=== PATIENT | male | born 1955 | race Caucasian/White ===

== ENCOUNTER → 2020-07-04 17:04 | Outpatient (CLI) | payer BC, SELFPAY ==
--- NOTE | 2020-07-04 17:09 | DI.MRI.S_ITS ---
PROCEDURE: MR KNEE LT WO CON INDICATIONS: INTERNAL DERANGMENT OF LEFT KNEE TECHNIQUE: Noncontrast sagittal PD fast spin echo and T2 fast spin echo with fat saturation, sagittal 3-D FLASH with fat saturation; coronal T1 spin echo and PD fast spin echo with fat saturation, and axial PD fast spin echo with fat saturation through the knee. COMPARISON: [facility] Outside Film, CR, XR KNEE 4+ VIEWS LEFT, 04/24/2020, 15:20. FINDINGS: Image quality: Excellent. Menisci: Linear oblique high T2 signal intensity traverses the posterior horn medial meniscus, demonstrating inferior articular surface extension, indicating oblique tearing. Radial tearing of the posterior horn medial meniscus at the meniscal root ligament insertion site. Lateral meniscus is intact. Cruciate ligaments: The anterior and posterior cruciate ligaments appear intact. Medial structures: The medial collateral ligament appears intact. Visualized portions of the pes anserinus tendons appear normal. No abnormal bursal fluid. Lateral structures: The lateral collateral ligament demonstrates mild T2 signal elevation at the femoral origin. The long and short heads of the biceps femoris tendon appear intact. The popliteus tendon appears normal. Iliotibial band appears normal. Anterior structures: The quadriceps and patellar tendons appear intact. There is mild T2 signal elevation within the patellar tendon at the patellar insertion site. Patellar alignment is normal. No femoral trochlear dysplasia or ventral trochlear prominence. No edema in the infrapatellar fat pad. Bones and cartilage: No bone marrow contusions or fractures. There is moderate diffuse articular cartilage loss overlying the weight-bearing aspects of the medial femoral condyle and medial tibial plateau. Moderate articular cartilage loss overlies the medial aspect of the medial patellar facet. Articular cartilage fibrillation overlies the patellar apex and lateral patellar facet. Moderate articular cartilage loss overlies the central and medial femoral trochlea. Joint space: There is a small knee joint effusion and a trace Milian's cyst. Small ganglion cyst along the popliteus. Normal appearing synovial plicae are incidentally noted. IMPRESSION: 1. Medial meniscal tearing. 2. Medial and patellofemoral compartment articular cartilage loss. 3. Mild patellar tendinitis. 4. Small knee joint effusion, trace Milian's cyst, and small ganglion cyst along the popliteus. Dictated by: Leonid Coughlin M.D. on 07/05/2020 at 8:29 Approved by: Leonid Coughlin M.D. on 07/05/2020 at 8:31
== END ==
PROVIDERS: Referring Provider Orthopaedic Surgery Adult Reconstructive Orthopaedic Surgery; Visit Provider Orthopaedic Surgery Adult Reconstructive Orthopaedic Surgery
DX: S83.242A Other tear of medial meniscus, current injury, left knee, initial encounter (principal); M76.52 Patellar tendinitis, left knee; M25.462 Effusion, left knee; M23.92 Unspecified internal derangement of left knee
CPT/HCPCS: 73721

== ENCOUNTER → 2020-11-15 14:27 | Outpatient (CLI) | payer BC, SELFPAY ==
[2020-11-15] MEDS: COVID-19 VACC #1, MRNA(MOD) 100 MCG/0.5 ML VIAL IM (14:35)
== END ==
PROVIDERS: Visit Provider Internal Medicine
DX: Z23 Encounter for immunization (principal)
CPT/HCPCS: 0011A; 91301

== ENCOUNTER → 2020-12-13 10:51 | Outpatient (CLI) | payer BC, SELFPAY ==
[2020-12-13] MEDS: COVID-19 VACC #2, MRNA(MOD) 100 MCG/0.5 ML VIAL IM (10:57)
== END ==
PROVIDERS: Visit Provider Internal Medicine
DX: Z23 Encounter for immunization (principal)
CPT/HCPCS: 0012A; 91301

== ENCOUNTER → 2021-08-16 08:01 | Outpatient (CLI) | payer MEDICARE, BC, SELFPAY ==
[2021-08-16 08:54] LABS: Alanine Aminotransferase 26 IU/L (<50); Aspartate Aminotransferase 45 IU/L (17-59); Cholesterol 139 mg/dL (140-199); Glucose 100 mg/dL (80-110); HDL Cholesterol 80 mg/dL (40-60); LDL Cholesterol Calculated 40 mg/dL (<100); Triglycerides 93 mg/dL (35-150)
[2021-08-16 08:57] LABS: High Sensitivity CRP - Cardiac 0.4 mg/L (1.0-3.0)
== END ==
PROVIDERS: PCP Internal Medicine; Referring Provider Nurse Practitioner; Visit Provider Nurse Practitioner
DX: R93.1 Abnormal findings on diagnostic imaging of heart and coronary circulation (principal); I25.10 Atherosclerotic heart disease of native coronary artery without angina pectoris; I25.84 Coronary atherosclerosis due to calcified coronary lesion; E78.2 Mixed hyperlipidemia; R73.01 Impaired fasting glucose; Z86.79 Personal history of other diseases of the circulatory system
CPT/HCPCS: 36415; 80061; 82947; 84450; 84460; 86140

== ENCOUNTER → 2021-09-13 14:52 | Outpatient (CLI) | payer MEDICARE, BC, SELFPAY ==
[2021-09-13 16:35] LABS: BUN Creatinine Ratio 10.8 (6-22); Blood Urea Nitrogen 8 mg/dL (9-20); Calcium 9.6 mg/dL (8.4-10.2); Carbon Dioxide 30 mmol/L (22-32); Chloride 94 mmol/L (98-107); Estimated Glomerular Filt Rate > 60.0 mL/min (>60); Glucose 70 mg/dL (80-110); HEMOLYSIS < 15 (0-50); Potassium 4.6 mmol/L (3.4-5.1); Sodium 131 mmol/L (137-145)
== END ==
PROVIDERS: PCP Internal Medicine; Referring Provider Internal Medicine Cardiovascular Disease; Visit Provider Internal Medicine Cardiovascular Disease
DX: I25.10 Atherosclerotic heart disease of native coronary artery without angina pectoris (principal)
CPT/HCPCS: 36415; 80048

== ENCOUNTER → 2021-10-11 15:25 | Outpatient (CLI) | payer MEDICARE, BC, SELFPAY ==
[2021-10-11 16:24] LABS: Add Manual Diff / Slide Review NO; Basophils Absolute Auto 0 /uL (0-100); Basophils Percent Auto 0.4 % (0-2); Eosinophils Absolute Auto 0 /uL (0-450); Eosinophils Percent Auto 0.6 % (2-4); Hematocrit 40.8 % (41-53); Hemoglobin 14.4 g/dL (13.5-17.5); Lymphocytes Absolute Auto 1400 /uL (1100-4500); Lymphocytes Percent Auto 25.3 % (25-40); Mean Corpuscular HGB Conc 35.4 % (30-36); Mean Corpuscular Hemoglobin 32.9 PG (26-34); Monocytes Absolute Auto 400 /uL (0-900); Monocytes Percent Auto 7.8 % (3-14); Neutrophils Absolute Auto 3700 /uL (1500-7000); Neutrophils Percent Auto 65.9 % (50-75); Platelet Count 200 X10^3/uL (150-400); Red Blood Cell Count 4.39 X10^6/uL (4.5-5.9); Red Cell Distribution Width 12.9 % (11.6-14.8); White Blood Cell Count 5.7 X10^3/uL (4.5-11.0)
[2021-10-11 16:42] LABS: BUN Creatinine Ratio 14.1 (6-22); Blood Urea Nitrogen 10 mg/dL (9-20); Calcium 9.3 mg/dL (8.4-10.2); Carbon Dioxide 31 mmol/L (22-32); Chloride 97 mmol/L (98-107); Estimated Glomerular Filt Rate > 60.0 mL/min (>60); Glucose 76 mg/dL (80-110); HEMOLYSIS < 15 (0-50); Potassium 4.1 mmol/L (3.4-5.1); Sodium 130 mmol/L (137-145)
== END ==
PROVIDERS: Referring Provider Orthopaedic Surgery; Visit Provider Orthopaedic Surgery
DX: Z01.818 Encounter for other preprocedural examination (principal); R68.89 Other general symptoms and signs
CPT/HCPCS: 36415; 80048; 85025; 93005

== ENCOUNTER → 2021-11-01 13:44 | Outpatient (CLI) | payer MEDICARE, BC, SELFPAY ==
[2021-11-01 15:19] LABS: COVID-19 CEPHEID PCR (VTM/NP) Negative (Negative)
== END ==
PROVIDERS: Visit Provider Nurse Practitioner Family
DX: Z20.822 Contact with and (suspected) exposure to COVID-19 (principal)
CPT/HCPCS: C9803; U0003; U0005

== ENCOUNTER 2021-11-11 15:15 | Emergency (ER) | payer MEDICARE, BC, SELFPAY ==
[2021-11-11 15:23] VITALS: BP 159/82; PULSE 94; RESP 17; TEMP 36.6; O2SAT 98; BMI 27.1
--- NOTE | 2021-11-11 15:44 | ED.EXTPRO ---
HPI - Extremity Problem General Chief complaint: Extremity Problem,Nontraumatic Stated complaint: post surgery RO blood clots in legs Time Seen by Provider: 11/11/21 15:39 Source: patient Mode of arrival: Ambulatory History of Present Illness HPI Narrative: 66-year-old male. One week ago underwent a left total knee replacement. Is currently just on 2 baby aspirin a day. Over the past couple days has noticed increasing swelling and pressure and discomfort in his left calf muscle and also some discoloration to his left foot. No chest pain. No shortness of breath. Has never had a blood clot in the past. Was instructed by his surgeon to come to the emergency department for evaluation of potential blood clot. Related Data Home Medications Medication Instructions Recorded Confirmed ezetimibe 10 mg tablet 10 mg PO DAILY 11/11/21 11/11/21 losartan 50 mg tablet 50 mg PO DAILY 11/11/21 11/11/21 oxycodone 5 mg tablet 5 mg PO DAILY 11/11/21 11/11/21 Allergies Allergy/AdvReac Type Severity Reaction Status Date / Time codeine AdvReac Verified 11/11/21 15:26 Review of Systems Cardiovascular Cardiovascular: Denies chest pain and Denies dyspnea Respiratory Respiratory: Denies dyspnea Musculoskeletal Musculoskeletal: Reports system reviewed and no additional complaints, except as documented and Reports as per HPI Integumentary/Breasts Skin/Breast: Reports system reviewed and no additional complaints, except as documented and Reports as per HPI Neurologic Neurologic: Reports system reviewed and no additional complaints, except as documented Hematologic/Lymphatic On Anticoagulants: No Patient History Surgical History (Updated 11/11/21 @ 16:01 by Konstantin Pemberton DO) H/O total knee replacement Social History Smoking Status: Never smoker Smoking Status: Never smoker alcohol intake frequency: other Substance Use Type: does not use Exam Initial Vital Signs Initial Vital Signs: Vital Signs Temperature 97.9 F 11/11/21 15:23 Pulse Rate 94 H 11/11/21 15:23 Respiratory Rate 17 11/11/21 15:23 Blood Pressure 159/82 H 11/11/21 15:23 Pulse Oximetry 98 11/11/21 15:23 HENMT Head: normal to inspection and normocephalic Resp Effort & Inspection: normal respiratory effort Cardio Rate: regular rate Pulses: dorsalis pedis present on the left Skin Other: Patient with bruising and ecchymosis located around the left knee in the left calf also lateral aspect of the left foot. Neuro Sensory Exam: no sensory deficits noted Extrem Other: Surgical scar left knee consistent with stated history that is covered with a surgical bandage is clean and dry. Does have swelling to his left calf and some discomfort in this area. Also has discoloration in the as well. Psych Appearance: grossly normal and well kempt Course Orders Ordered: ED Orders 11/11/21 15:45 US periph venous low extrem lt Stat Vital Signs Vital signs: Vital Signs - 8 hr 11/11/21 15:23 11/11/21 17:40 Temperature 97.9 F Pulse Rate 94 H 79 Respiratory Rate 17 18 Blood Pressure 159/82 H 147/83 H Pulse Oximetry 98 97 MDM - Extremity (Nontraumatic) Imaging Data US - DVT: Radiologist's Impression: [address] [address] Ultrasound Report Signed Patient: Bolivar Craft MR#: [id number] : 1955 Acct:[id number] Age/Sex: 66 / M Date of Service: 11/11/21 Loc: ED Accession Number: [id number] ?? Procedure: perip venous low extrem lt Ordering Provider: Konstantin Pemberton D.O. PROCEDURE:? US PERIPH VENOUS LOW EXTREM LT ? INDICATIONS:? 1 week S/P TKA eval for DVT ? TECHNIQUE:? Real-time imaging, as well as color and pulse Doppler interrogation, were performed of the lower extremity deep veins from the inguinal ligament to the popliteal fossa.? ? COMPARISON:? None. ? FINDINGS:? The common femoral, femoral and popliteal veins are normally compressible, and free of intraluminal thrombus.? Color and pulse Doppler demonstrate normal phasic intraluminal flow.? There is normal augmentation response to distal compression maneuver. ? ? IMPRESSION:? ? 1. No evidence of DVT in the left lower extremity. ? Dictated by: Nara Ramirez M.D. on 11/11/2021 at 17:00 ? ? Approved by: Nara Ramirez M.D. on 11/11/2021 at 17:00?? [facility] Narrative Medical decision making narrative: Leg exam today he is consistent with where would expect him to be at this point during his recovery after his left total knee replacement. He is neurovascularly intact. There is no signs of any infection. Clean dressing and placed over surgical incision which I did not feel the need to remove today. No evidence of DVT noted on the ultrasound. Patient was instructed he should continue to follow all of the postoperative instructions given to him by Orthopedic surgery. He has a follow-up later this week with Orthopedics already scheduled. He was given return precautions. He expressed understanding and agreement. Discharge Plan Departure Patient Disposition: Home Clinical Impression: Leg swelling Activity Restrictions/Additional Instructions: The ultrasound today did not have any indication of a blood clot in your leg. I do recommend that you follow-up all of the instructions given to by the orthopedic surgeon and keep all of your scheduled medical appointments. Return to the emergency department for any new or worsening symptoms. Prescriptions: No Action losartan 50 mg tablet 50 mg PO DAILY 0RF Label Comments: TAKE 1 TABLET BY MOUTH DAILY oxycodone 5 mg tablet 5 mg PO DAILY 0RF Label Comments: take 1-2 tablets by mouth every 6 hours if needed for severe pain ezetimibe 10 mg tablet 10 mg PO DAILY 0RF Label Comments: TAKE 1 TABLET BY MOUTH DAILY
--- NOTE | 2021-11-11 15:45 | DI.US.S_ITS ---
PROCEDURE: US PERIPH VENOUS LOW EXTREM LT INDICATIONS: 1 week S/P TKA eval for DVT TECHNIQUE: Real-time imaging, as well as color and pulse Doppler interrogation, were performed of the lower extremity deep veins from the inguinal ligament to the popliteal fossa. COMPARISON: None. FINDINGS: The common femoral, femoral and popliteal veins are normally compressible, and free of intraluminal thrombus. Color and pulse Doppler demonstrate normal phasic intraluminal flow. There is normal augmentation response to distal compression maneuver. IMPRESSION: 1. No evidence of DVT in the left lower extremity. Dictated by: Nara Ramirez M.D. on 11/11/2021 at 17:00 Approved by: Nara Ramirez M.D. on 11/11/2021 at 17:00
[2021-11-11 17:40] VITALS: BP 147/83; PULSE 79; RESP 18; O2SAT 97
== END 2021-11-11 17:44 | disposition home or self-care (01) ==
PROVIDERS: Emergency Provider Emergency Medicine; PCP Orthopaedic Surgery
DX: M79.89 Other specified soft tissue disorders (principal); M79.662 Pain in left lower leg; Z98.890 Other specified postprocedural states
CPT/HCPCS: 93971; 99281; 99283

== ENCOUNTER → 2022-04-15 07:38 | Outpatient (CLI) | payer MEDICARE, BC, SELFPAY ==
[2022-04-15 08:43] LABS: Hemoglobin A1C% w Est Avg Glu 4.7 % (4.0-6.0)
[2022-04-15 10:35] LABS: Alanine Aminotransferase 24 IU/L (<50); Aspartate Aminotransferase 42 IU/L (17-59); Cholesterol 146 mg/dL (140-199); Glucose 94 mg/dL (80-110); HDL Cholesterol 76 mg/dL (40-60); LDL Cholesterol Calculated 51 mg/dL (<100); Triglycerides 93 mg/dL (35-150)
[2022-04-15 10:51] LABS: Prostate Specific Antigen Scrn 0.637 ng/mL (0.1-4.0)
== END ==
PROVIDERS: PCP Internal Medicine; Referring Provider Nurse Practitioner; Visit Provider Nurse Practitioner
DX: Z12.5 Encounter for screening for malignant neoplasm of prostate (principal); R73.01 Impaired fasting glucose; E78.2 Mixed hyperlipidemia; I25.10 Atherosclerotic heart disease of native coronary artery without angina pectoris; I25.84 Coronary atherosclerosis due to calcified coronary lesion; Z82.49 Family history of ischemic heart disease and other diseases of the circulatory system
CPT/HCPCS: 36415; 80061; 82947; 83036; 84450; 84460; G0103

== ENCOUNTER → 2022-10-21 15:00 | Outpatient (CLI) | payer MEDICARE, BC, SELFPAY ==
[2022-10-21 16:47] LABS: Influenza A - CEPHEID Flu A NEGATIVE (NEGATIVE); Influenza B - CEPHEID Flu B NEGATIVE (NEGATIVE); Respiratory Syncytial Virus Negative (Negative)
[2022-10-21 16:59] LABS: COVID-19 CEPHEID 4-PLEX PCR Negative (Negative)
== END ==
PROVIDERS: PCP Internal Medicine; Visit Provider Nurse Practitioner Family
DX: R05.1 Acute cough (principal); R09.89 Other specified symptoms and signs involving the circulatory and respiratory systems
CPT/HCPCS: 0241U

== ENCOUNTER → 2022-12-17 06:44 | Outpatient (CLI) | payer MEDICARE, BC, SELFPAY ==
[2022-12-17 08:29] LABS: Alanine Aminotransferase 41 IU/L (<50); Albumin 4.3 g/dL (3.5-5.0); Albumin Globulin Ratio 1.7 (1.0-2.8); Alkaline Phosphatase 61 U/L (38-126); Aspartate Aminotransferase 52 IU/L (17-59); Bilirubin Total 0.8 mg/dL (0.2-1.3); Blood Urea Nitrogen 7 mg/dL (9-20); Calcium 9.2 mg/dL (8.4-10.2); Carbon Dioxide 29 mmol/L (22-32); Chloride 98 mmol/L (98-107); Cholesterol 139 mg/dL (140-199); Estimated Glomerular Filt Rate > 60 mL/min (>60); Globulin 2.5 g/dL (1.7-4.1); Glucose 86 mg/dL (80-110); HDL Cholesterol 75 mg/dL (40-60); HEMOLYSIS < 15 (0-50); LDL Cholesterol Calculated 31 mg/dL (<100); Potassium 4.5 mmol/L (3.4-5.1); Sodium 134 mmol/L (137-145); Total Protein 6.8 g/dL (6.3-8.2); Triglycerides 163 mg/dL (35-150)
== END ==
PROVIDERS: PCP Internal Medicine; Referring Provider Nurse Practitioner; Visit Provider Nurse Practitioner
DX: E78.2 Mixed hyperlipidemia (principal); I10 Essential (primary) hypertension; I25.10 Atherosclerotic heart disease of native coronary artery without angina pectoris
CPT/HCPCS: 36415; 80053; 80061

== ENCOUNTER → 2023-06-24 07:04 | Outpatient (CLI) | payer MEDICARE, BC, SELFPAY ==
[2023-06-24 08:43] LABS: Alanine Aminotransferase 46 IU/L (<50); Cholesterol 148 mg/dL (140-199); Glucose 89 mg/dL (80-110); HDL Cholesterol 79 mg/dL (40-60); LDL Cholesterol Calculated 43 mg/dL (<100); Triglycerides 129 mg/dL (35-150)
== END ==
PROVIDERS: PCP Internal Medicine; Referring Provider Nurse Practitioner; Visit Provider Nurse Practitioner
DX: E78.2 Mixed hyperlipidemia (principal); R73.01 Impaired fasting glucose
CPT/HCPCS: 36415; 80061; 82947; 83036; 84460

== ENCOUNTER 2023-07-21 12:06 | Emergency (ER) | payer MEDICARE, BC, SELFPAY ==
[2023-07-21] VITALS (14 sets, daily range): BP systolic 138–171; BP diastolic 82–87; PULSE 67–81; RESP 12–21; TEMP 36.7–36.9; O2SAT 98–100; BMI 27.1
--- NOTE | 2023-07-21 12:18 | DI.RAD.S_ITS ---
PROCEDURE: XR CHEST 1V INDICATIONS: chest pain TECHNIQUE: One view of the chest was acquired. COMPARISON: None. FINDINGS: Surgical changes and devices: None. Lungs and pleura: Lungs are clear. No pleural effusions or pneumothorax. Mediastinum: Mediastinal contours appear normal. Heart size is normal. Bones and chest wall: No suspicious bony lesions. Overlying soft tissues appear unremarkable. IMPRESSION: No acute cardiopulmonary abnormality is seen. Dictated by: Carla Kaba M.D. on 07/21/2023 at 12:55 Approved by: Carla Kaba M.D. on 07/21/2023 at 12:55
[2023-07-21] MEDS: ASPIRIN 81 MG CHEW TAB 324 MG PO (12:28)
--- NOTE | 2023-07-21 12:36 | PC.NURSE ---
Pt mainly complains of dizziness associated with change in position. Pt states he had a minor episode of chest pain prior to arriving but is unsure if was pain or not. Pt does not provide much more information when asked further questions about chest pain. Cardiac order set placed and pt on monitor.
[2023-07-21 12:37] LABS: Add Manual Diff / Slide Review NO; Basophils Absolute Auto 0 /uL (0-100); Basophils Percent Auto 0.3 % (0-2); Eosinophils Absolute Auto 0 /uL (0-450); Eosinophils Percent Auto 0.6 % (2-4); Hematocrit 40.8 % (41-53); Hemoglobin 14.6 g/dL (13.5-17.5); Lymphocytes Absolute Auto 900 /uL (1100-4500); Lymphocytes Percent Auto 16.9 % (25-40); Mean Corpuscular HGB Conc 35.9 % (30-36); Mean Corpuscular Hemoglobin 33.8 PG (26-34); Mean Corpuscular Volume 94.1 fL (80-100); Monocytes Absolute Auto 400 /uL (0-900); Monocytes Percent Auto 7.7 % (3-14); Neutrophils Absolute Auto 3900 /uL (1500-7000); Neutrophils Percent Auto 74.5 % (50-75); Platelet Count 192 X10^3/uL (150-400); Red Blood Cell Count 4.33 X10^6/uL (4.5-5.9); White Blood Cell Count 5.2 X10^3/uL (4.5-11.0)
[2023-07-21 12:43] LABS: Prothrombin Time 11.4 SECONDS (9.4-12.5)
[2023-07-21 12:46] LABS: PTT Partial Thromboplastin Tim 29 SECONDS (25.1-36.5)
[2023-07-21 12:51] LABS: Alanine Aminotransferase 43 IU/L (<50); Albumin 4.5 g/dL (3.5-5.0); Albumin Globulin Ratio 1.5 (1.0-2.8); Alkaline Phosphatase 57 U/L (38-126); Aspartate Aminotransferase 57 IU/L (17-59); BUN Creatinine Ratio 13.6 (6-22); Bilirubin Total 0.9 mg/dL (0.2-1.3); Blood Urea Nitrogen 9 mg/dL (9-20); Calcium 9.9 mg/dL (8.4-10.2); Carbon Dioxide 28 mmol/L (22-32); Chloride 93 mmol/L (98-107); Creatine Kinase 41 U/L (55-170); Estimated Glomerular Filt Rate > 60 mL/min (>60); Glucose 112 mg/dL (80-110); HEMOLYSIS < 15 (0-50); Lipase 144 U/L (23-300); Magnesium 2.2 mg/dL (1.6-2.3); Potassium 4.3 mmol/L (3.4-5.1); Sodium 128 mmol/L (137-145); Total Protein 7.5 g/dL (6.3-8.2)
[2023-07-21 13:02] LABS: Troponin I < 0.012 ng/mL (0.01-0.034)
--- NOTE | 2023-07-21 13:30 | ED_ITS ---
HPI - Chest Pain General Chief Complaint: Chest Pain Stated Complaint: dizziness when sit up or lay down/hx heart disease Time Seen by Provider: 07/21/23 13:14 Source: patient Mode of arrival: Ambulatory Limitations: no limitations Limitations: no limitations History of Present Illness HPI narrative: 68-year-old male with history of hypertension, dyslipidemia on aspirin 81 mg daily with complaint of dizziness. He states he was sleeping last night rolled over and felt dizzy. He is felt like he was going to pass out and felt lightheaded more like the room was going to white out. States he was up and down several times has had similar symptoms seems to be worse when he sits forward or lays back. Patient states it does not feel like the room or his head is spinning. He denies headache. Denies vision changes. No syncopal episodes. States no similar symptoms in the past seems to be worse with movement but he states can be worse when lying back or sitting up. Is not worse when he moves his head quickly. Denies any chest pain or pressure, no shortness of breath. Denies any nausea or vomiting. No diarrhea or constipation, no urinary symptoms. No numbness, tingling or weakness. No difficulty with movement. He does not feel off balance otherwise. Patient states he is on medication for blood pressure, cholesterol and an aspirin. No other thinners. Had any surgery 2 years ago another prior surgeries and no prior cardiac interventions. No known drug allergies. No tobacco, drinks 2-3 alcoholic drinks daily, no recreational drugs. Primary care is Dr. Sneed. Related Data Home Medications Medication Instructions Recorded Confirmed ezetimibe 10 mg tablet 10 mg PO DAILY 11/11/21 06/16/23 losartan 50 mg tablet 50 mg PO DAILY 11/11/21 06/16/23 acetaminophen 500 mg tablet (Pain 500 - 1,000 mg PO Q6H 02/21/22 06/16/23 Relief (acetaminophen)) evolocumab 140 mg/mL subcutaneous 140 mg SUBCUT Q2W 02/21/22 06/16/23 pen injector (Lisa Garcia) Previous Rx's Medication Instructions Recorded azelastine 137 mcg (0.1 %) nasal 1 spray intranasal BID #30 mL 01/16/23 spray aerosol oxycodone-acetaminophen 5 mg-325 See Rx Instructions PO Q4-6H PRN 06/16/23 mg tablet pain #45 tabs meclizine 25 mg tablet 25 mg PO QID PRN dizziness #20 tabs 07/21/23 Allergies Allergy/AdvReac Type Severity Reaction Status Date / Time [id number] Reductase AdvReac Severe Muscle Pain Verified 06/16/23 09:56 Inhibitor codeine AdvReac Verified 06/16/23 09:56 Review of Systems Review of Systems ROS Unobtainable: All systems reviewed & are unremarkable except as noted in HPI and below Patient History Medical History Opioid dependence Hearing loss Acne Shoulder pain Carpal tunnel syndrome Mumps Measles Chronic neck pain Chronic gout Coronary artery disease Mixed hyperlipidemia Essential hypertension Surgical History Anesthesia History of elbow surgery S/P appendectomy H/O total knee replacement (~10/2021) Family History Father History of heart disease Alzheimer's disease Brother History of heart disease Brother History of heart disease Social History Smoking Status: Former smoker Smoking Status: Former smoker alcohol intake frequency: other Substance Use Type: does not use Exam Narrative Exam Narrative: GEN: well nourished, well appearing male, alert and oriented x 3, patient appears to be in mild distress. HEENT: Atraumatic, pupils are equal round reactive to light, extraocular movements are intact, no nystagmus, nares are clear, TMs are clear with no fluid, there is no conjunctival pallor. Throat is clear without any exudates, erythema, tonsillar enlargement or uvular deviation, no facial droop. HEART: Regular rate and rhythm without murmur, clicks, rubs. No carotid bruits, pulses are equal in upper and lower extremities LUNGS:Lungs clear to auscultation, no wheezes, rales, crackles, chest moves symmetrically ABD:bowel sounds normal, soft, non-tender, no guarding, rebound, rigidity, no masses noted, no hepatosplenomegaly :No CVA tenderness MSCL: Non-tender, no muscle atrophy, muscles strength 5/5 upper and lower extremities, full range of motion, normal gait patient ambulated to bathroom without issue. NEURO:CN 2-12 intact, sensation normal, finger nose finger test normal, heel saenz test normal SKIN: No rash, erythema or other skin changes Initial Vital Signs Initial Vital Signs: Vital Signs Temperature 98.4 F 07/21/23 12:08 Pulse Rate 81 07/21/23 12:08 Respiratory Rate 18 07/21/23 12:08 Blood Pressure 147/86 H 07/21/23 12:08 Pulse Oximetry 98 07/21/23 12:08 Oxygen Delivery Method Room Air 07/21/23 12:08 Course Orders Ordered: Discontinued Medications Aspirin (Aspirin 81 Mg Chew Tab) 324 mg PO NOW ONE Stop: 07/21/23 12:19 Last Admin: 07/21/23 12:28 Dose: 243 mg Documented By: TRACE Sodium Chloride (Normal Saline 0.9%) 1,000 mls @ 1,000 mls/hr IV BOLUS ONE Stop: 07/21/23 15:10 Last Infusion: 07/21/23 15:38 Dose: Infused Documented By: Admin: 07/21/23 14:16 Dose: 1,000 mls/hr Documented By: CHANDRAKANT Meclizine HCl (Meclizine Hcl 12.5 Mg Tablet) 25 mg PO NOW ONE Stop: 07/21/23 13:53 Last Admin: 07/21/23 14:15 Dose: 25 mg Documented By: CHANDRAKANT Vital Signs Vital signs: Vital Signs - 8 hr 07/21/23 12:08 07/21/23 12:23 07/21/23 12:30 Temperature 98.4 F Pulse Rate 81 72 77 Pulse Rate [Orthostatic Lying] Pulse Rate [Orthostatic Sitting] Pulse Rate [Orthostatic Standing] Respiratory Rate 18 16 21 Blood Pressure 147/86 H Blood Pressure [Orthostatic Lying] Blood Pressure [Orthostatic Sitting] Blood Pressure [Orthostatic Standing] Pulse Oximetry 98 100 100 Oxygen Delivery Method Room Air 07/21/23 12:32 07/21/23 12:32 07/21/23 13:00 Temperature Pulse Rate 72 73 Pulse Rate [Orthostatic Lying] Pulse Rate [Orthostatic Sitting] Pulse Rate [Orthostatic Standing] Respiratory Rate 17 16 Blood Pressure 148/84 H Blood Pressure [Orthostatic Lying] Blood Pressure [Orthostatic Sitting] Blood Pressure [Orthostatic Standing] Pulse Oximetry 100 99 Oxygen Delivery Method 07/21/23 13:00 07/21/23 13:30 07/21/23 13:30 Temperature Pulse Rate 75 Pulse Rate [Orthostatic Lying] Pulse Rate [Orthostatic Sitting] Pulse Rate [Orthostatic Standing] Respiratory Rate 16 Blood Pressure 138/83 150/86 H Blood Pressure [Orthostatic Lying] Blood Pressure [Orthostatic Sitting] Blood Pressure [Orthostatic Standing] Pulse Oximetry 99 Oxygen Delivery Method 07/21/23 14:03 07/21/23 14:03 07/21/23 14:04 Temperature Pulse Rate 81 75 Pulse Rate [Orthostatic Lying] Pulse Rate [Orthostatic Sitting] Pulse Rate [Orthostatic Standing] Respiratory Rate Blood Pressure 154/83 H Blood Pressure [Orthostatic Lying] Blood Pressure [Orthostatic Sitting] Blood Pressure [Orthostatic Standing] Pulse Oximetry 100 100 Oxygen Delivery Method 07/21/23 14:04 07/21/23 14:05 07/21/23 14:05 Temperature Pulse Rate 77 Pulse Rate [Orthostatic Lying] Pulse Rate [Orthostatic Sitting] Pulse Rate [Orthostatic Standing] Respiratory Rate Blood Pressure 159/86 H 155/87 H Blood Pressure [Orthostatic Lying] Blood Pressure [Orthostatic Sitting] Blood Pressure [Orthostatic Standing] Pulse Oximetry 100 Oxygen Delivery Method 07/21/23 14:09 07/21/23 14:09 07/21/23 14:11 Temperature Pulse Rate 71 Pulse Rate [Orthostatic Lying] 70 Pulse Rate [Orthostatic Sitting] 76 Pulse Rate [Orthostatic Standing] 76 Respiratory Rate Blood Pressure 146/82 H Blood Pressure [Orthostatic Lying] 154/83 H Blood Pressure [Orthostatic Sitting] 159/86 H Blood Pressure [Orthostatic Standing] 155/87 H Pulse Oximetry 100 Oxygen Delivery Method 07/21/23 14:30 07/21/23 14:30 07/21/23 15:00 Temperature Pulse Rate 67 75 Pulse Rate [Orthostatic Lying] Pulse Rate [Orthostatic Sitting] Pulse Rate [Orthostatic Standing] Respiratory Rate 17 12 Blood Pressure 171/86 H Blood Pressure [Orthostatic Lying] Blood Pressure [Orthostatic Sitting] Blood Pressure [Orthostatic Standing] Pulse Oximetry 100 100 Oxygen Delivery Method Room Air 07/21/23 15:00 Temperature Pulse Rate Pulse Rate [Orthostatic Lying] Pulse Rate [Orthostatic Sitting] Pulse Rate [Orthostatic Standing] Respiratory Rate Blood Pressure 149/87 H Blood Pressure [Orthostatic Lying] Blood Pressure [Orthostatic Sitting] Blood Pressure [Orthostatic Standing] Pulse Oximetry Oxygen Delivery Method MDM - Chest Pain Lab Data 07/21/23 12:25 07/21/23 12:25 Labs: Lab Results 07/21/23 Range/Units 12:25 WBC 5.2 (4.5-11.0) X10^3/uL RBC 4.33 L (4.5-5.9) X10^6/uL Hgb 14.6 (13.5-17.5) g/dL Hct 40.8 L (41-53) % MCV 94.1 (80-100) fL MCH 33.8 (26-34) PG MCHC 35.9 (30-36) % RDW 13.0 (11.6-14.8) % Plt Count 192 (150-400) X10^3/uL Neut % (Auto) 74.5 (50-75) % Lymph % (Auto) 16.9 L (25-40) % [place] % (Auto) 7.7 (3-14) % Eos % (Auto) 0.6 L (2-4) % Baso % (Auto) 0.3 (0-2) % Neut # (Auto) 3900 (7258-8226) /uL Lymph # (Auto) 900 L (7818-1636) /uL [place] # (Auto) 400 (0-900) /uL Eos # (Auto) 0 (0-450) /uL Baso # (Auto) 0 (0-100) /uL PT 11.4 (9.4-12.5) SECONDS INR 1.0 (0.9-1.3) APTT 29 (25.1-36.5) SECONDS Sodium 128 L (137-145) mmol/L Potassium 4.3 (3.4-5.1) mmol/L Chloride 93 L (98-107) mmol/L Carbon Dioxide 28 (22-32) mmol/L BUN 9 (9-20) mg/dL Creatinine 0.66 (0.66-1.25) mg/dL Estimated GFR > 60 (>60) mL/min BUN/Creatinine Ratio 13.6 (6-22) Glucose 112 H (80-110) mg/dL Calcium 9.9 (8.4-10.2) mg/dL Magnesium 2.2 (1.6-2.3) mg/dL Total Bilirubin 0.9 (0.2-1.3) mg/dL AST 57 (17-59) IU/L ALT 43 (<50) IU/L Alkaline Phosphatase 57 (38-126) U/L Total Creatine Kinase 41 L (55-170) U/L Troponin I < 0.012 (0.01-0.034) ng/mL Total Protein 7.5 (6.3-8.2) g/dL Albumin 4.5 (3.5-5.0) g/dL Globulin 3.0 (1.7-4.1) g/dL Albumin/Globulin Ratio 1.5 (1.0-2.8) Lipase 144 (23-300) U/L Imaging Data Chest x-ray: Radiologist's Impression: Diagnostics Reports Bolivar Craft? 68? M? 1955 ? ?? Allergy/Adv: [id number] Reductase Inhibitor, [address] [address] XRay Report? Signed Patient: Bolivar Craft MR#: [id number] : 1955 Acct:[id number] Age/Sex: 68 / M Date of Service: 07/21/23 Loc: ED Accession Number: [id number]? ? Procedure: XR chest 1V Ordering Provider: Isela Marquez D.O. PROCEDURE:? XR CHEST 1V ? INDICATIONS:? chest pain ? TECHNIQUE:? One view of the chest was acquired.?? ? COMPARISON:? None. ? FINDINGS:?? ? Surgical changes and devices:? None.?? ? Lungs and pleura:? Lungs are clear.? No pleural effusions or pneumothorax.?? ? Mediastinum:? Mediastinal contours appear normal.? Heart size is normal.?? ? Bones and chest wall:? No suspicious bony lesions.? Overlying soft tissues appear? unremarkable.? IMPRESSION:?? ? No acute cardiopulmonary abnormality is seen.? Dictated by: Carla Kaba M.D. on 07/21/2023 at 12:55? ? ? Approved by: Carla Kaba M.D. on 07/21/2023 at 12:55? ? CT scan - head: Radiologist's Impression: Close Head CT (Signed) Nicole Clark - 07/21/23 Chest X-Ray (Signed) SharonshawnCarla - 07/21/23 Vascular Ultrasound (Signed) Nara Ramirez - 11/11/21 Knee MRI (Signed) Leonid Coughlin - 07/04/20 [place] [address] CT Scan Report Signed Patient: Bolivar Craft MR#: [id number] : 1955 Acct:[id number] Age/Sex: 68 / M Date of Service: 07/21/23 Loc: ED Accession Number: [id number] Procedure: CT head/brain wo con Ordering Provider: Isela Marquez D.O. PROCEDURE: CT HEAD/BRAIN WO CON INDICATIONS: dizzy, lightheaded, worse w/ movement TECHNIQUE: Noncontrast 4.5 mm thick angled axial sections acquired from the foramen magnum to the vertex, with coronal and sagittal reformats. For radiation dose reduction, the following was used: automated exposure control, adjustment of mA and/or kV according to patient size. COMPARISON: None. FINDINGS: Image quality: Excellent. CSF spaces: Basal cisterns are patent. No extra-axial fluid collections. The ventricles are symmetric in size and shape. Brain: No intracranial bleeds or masses. There is cerebral volume loss for age, with resultant ventricular and sulcal prominence. There are periventricular and deep white matter chronic small vessel ischemic changes. There is intracranial internal carotid artery atherosclerosis. Skull and face: Calvarium and visualized facial bones appear intact, without suspicious lesions. Sinuses: Visualized sinuses and mastoids are clear. IMPRESSION: No acute intracranial disease process. Dictated by: Nicole Clark MD, PhD on 07/21/2023 at 14:06 Approved by: Nicole Clark MD, PhD on 07/21/2023 at 14:08 ECG Data Attestation: I personally reviewed and interpreted this ECG as follows: Prior ECG tracings: available for review Interpretation: Sinus rhythm rate of 78, LA 184 QRS of 90 QTC 417, no acute ST elevation or depression noted. Patient has prior from 10/11/2021 which appears similar. MDM Narrative Medical decision making narrative: 68-year-old male with symptoms that seem somewhat like vertigo but other symptoms seem more like a lightheadedness or dizziness. Patient has reassuring exam no acute neurologic deficits. I am not able to recreate his symptoms in the room with movement and he is negative on [place]. Patient's labs do show a sodium of 128 he was 134 and December of 2022 normal white count, normal hemoglobin and platelets normal renal function electrolytes otherwise LFTs and troponin are negative chest x-ray is negative. EKG shows no acute change. Patient's hyponatremia may play a part but he has not had persistent symptoms so seems less likely. His symptoms have been improving with time. Head CT shows no acute change. Patient did have orthostatic vitals which were negative. Patient did have a dose of meclizine fluids, he continues to be asymptomatic but was able to ambulate to the bathroom and did not have any symptoms during my evaluation before he received these. Patient feels comfortable returning home we will give a script for meclizine. Plan for follow up with primary care. Discussed with patient's some of his symptoms seem consistent with vertigo other see more of a lightheadedness vagal type episode although his orthostatics do not really reflect this. Patient's symptoms have resolved persistent throughout the day but has been getting better. He continues to feel improved. No other acute neurologic changes suggesting acute neurologic event patient is felt appropriate and safe disposition home. Patient feels comfortable plan discussed return precautions all questions answered. Discharge Plan Departure Patient Disposition: Home Clinical Impression: Dizziness, Hyponatremia Instructions: DI for Dizziness-Nonvertigo Activity Restrictions/Additional Instructions: Please follow-up with your physician for recheck. Your sodium was slightly low today, please follow up with your physician to make sure this isn't dropping lower by having your labs rechecked. Your workup today shows no other acute changes. If you find the meclizine helpful you can take 1-2 tablets every 6 hours for symptoms. Please return for new or worsening changes, severe headaches, passing out, new chest pain or shortness of breath, nausea vomiting, numbness tingling or weakness or other new or concerning changes. Prescriptions: New meclizine 25 mg tablet 25 mg PO QID PRN (Reason: dizziness) Qty: 20 0RF No Action azelastine 137 mcg (0.1 %) aerosol,spray 1 spray intranasal BID Qty: 30 3RF Rx Instructions: administer into each nostril acetaminophen [Pain Relief (acetaminophen)] 500 mg tablet 500 - 1,000 mg PO Q6H Patient Comments: take 1 to 2 tablets by mouth every 6 hours if needed *MAX 6 TABLETS PER DAY* Rx Instructions: Max daily dose of 6 tabs per day. Repatha SureClick 140 mg/mL pen injector 140 mg SUBCUT Q2W oxycodone-acetaminophen 5-325 mg tablet See Rx Instructions PO Q4-6H PRN (Reason: pain) Qty: 45 0RF Rx Instructions: 1-2 TABS PO Q4-6H PRN; losartan 50 mg tablet 50 mg PO DAILY Patient Comments: TAKE 1 TABLET BY MOUTH DAILY ezetimibe 10 mg tablet 10 mg PO DAILY Patient Comments: TAKE 1 TABLET BY MOUTH DAILY Referrals: Carlos Sneed MD [Primary Care Provider] - Stand Alone Forms: Patient Portal/API
--- NOTE | 2023-07-21 13:58 | DI.CT.S_ITS ---
PROCEDURE: CT HEAD/BRAIN WO CON INDICATIONS: dizzy, lightheaded, worse w/ movement TECHNIQUE: Noncontrast 4.5 mm thick angled axial sections acquired from the foramen magnum to the vertex, with coronal and sagittal reformats. For radiation dose reduction, the following was used: automated exposure control, adjustment of mA and/or kV according to patient size. COMPARISON: None. FINDINGS: Image quality: Excellent. CSF spaces: Basal cisterns are patent. No extra-axial fluid collections. The ventricles are symmetric in size and shape. Brain: No intracranial bleeds or masses. There is cerebral volume loss for age, with resultant ventricular and sulcal prominence. There are periventricular and deep white matter chronic small vessel ischemic changes. There is intracranial internal carotid artery atherosclerosis. Skull and face: Calvarium and visualized facial bones appear intact, without suspicious lesions. Sinuses: Visualized sinuses and mastoids are clear. IMPRESSION: No acute intracranial disease process. Dictated by: Nicole Clark MD, PhD on 07/21/2023 at 14:06 Approved by: Nicole Clark MD, PhD on 07/21/2023 at 14:08
[2023-07-21] MEDS: MECLIZINE HCL 12.5 MG TABLET 25 MG PO (14:15)
[2023-07-21] MEDS: SODIUM CHLORIDE 0.9% 1,000 ML 1000 ML IV (14:16)
== END 2023-07-21 15:53 | disposition home or self-care (01) ==
PROVIDERS: Emergency Provider Emergency Medicine; PCP Internal Medicine
DX: R42 Dizziness and giddiness (principal); E87.1 Hypo-osmolality and hyponatremia; I10 Essential (primary) hypertension; Z87.891 Personal history of nicotine dependence
CPT/HCPCS: 36415; 70450; 71045; 80053; 82550; 83690; 83735; 84484; 85025; 85610; 85730; 93005; 99284

== ENCOUNTER → 2023-11-05 16:52 | Outpatient (CLI) | payer MEDICARE, SELFPAY ==
[2023-11-05 18:01] LABS: Alanine Aminotransferase 64 IU/L (<50); Albumin 3.8 g/dL (3.5-5.0); Albumin Globulin Ratio 1.4 (1.0-2.8); Alkaline Phosphatase 49 U/L (38-126); Aspartate Aminotransferase 83 IU/L (17-59); BUN Creatinine Ratio 15.5 (6-22); Bilirubin Total 0.6 mg/dL (0.2-1.3); Blood Urea Nitrogen 11 mg/dL (9-20); Calcium 8.8 mg/dL (8.4-10.2); Carbon Dioxide 24 mmol/L (22-32); Chloride 96 mmol/L (98-107); Estimated Glomerular Filt Rate > 60 mL/min (>60); Globulin 2.8 g/dL (1.7-4.1); Glucose 96 mg/dL (80-110); HEMOLYSIS < 15 (0-50); Potassium 3.7 mmol/L (3.4-5.1); Sodium 127 mmol/L (137-145); Total Protein 6.6 g/dL (6.3-8.2)
[2023-11-05 18:32] LABS: Prostate Specific Antigen Scrn 0.594 ng/mL (0.1-4.0)
== END ==
PROVIDERS: Family Provider Internal Medicine; PCP Internal Medicine; Referring Provider Internal Medicine; Visit Provider Internal Medicine
DX: Z12.5 Encounter for screening for malignant neoplasm of prostate (principal); I10 Essential (primary) hypertension; E78.2 Mixed hyperlipidemia
CPT/HCPCS: 36415; 80053; G0103

== ENCOUNTER → 2023-12-22 08:44 | Outpatient (CLI) | payer MEDICARE, SELFPAY ==
[2023-12-22 10:36] LABS: Cholesterol 133 mg/dL (140-199); Glucose 92 mg/dL (80-110); HDL Cholesterol 87 mg/dL (40-60); Hemoglobin A1C% w Est Avg Glu 4.9 % (4.0-6.0); LDL Cholesterol Calculated 21 mg/dL (<100); Triglycerides 125 mg/dL (35-150)
== END ==
PROVIDERS: Family Provider Internal Medicine; PCP Internal Medicine; Referring Provider Nurse Practitioner; Visit Provider Nurse Practitioner
DX: E78.2 Mixed hyperlipidemia (principal)
CPT/HCPCS: 36415; 80061; 82947; 83036

== ENCOUNTER → 2024-06-02 07:15 | Outpatient (CLI) | payer MEDICARE, SELFPAY ==
[2024-06-02 08:45] LABS: Alanine Aminotransferase 47 IU/L (<50); Albumin 4.3 g/dL (3.5-5.0); Albumin Globulin Ratio 1.7 (1.0-2.8); Alkaline Phosphatase 74 U/L (38-126); Aspartate Aminotransferase 59 IU/L (17-59); Bilirubin Total 0.9 mg/dL (0.2-1.3); Blood Urea Nitrogen 9 mg/dL (9-20); Calcium 9.3 mg/dL (8.4-10.2); Carbon Dioxide 25 mmol/L (22-32); Chloride 98 mmol/L (98-107); Cholesterol 140 mg/dL (140-199); Estimated Glomerular Filt Rate > 60 mL/min (>60); Globulin 2.6 g/dL (1.7-4.1); Glucose 90 mg/dL (80-110); HDL Cholesterol 72 mg/dL (40-60); HEMOLYSIS < 15 (0-50); LDL Cholesterol Calculated 44 mg/dL (<100); Potassium 4.8 mmol/L (3.4-5.1); Sodium 133 mmol/L (137-145); Total Protein 6.9 g/dL (6.3-8.2); Triglycerides 119 mg/dL (35-150)
[2024-06-02 08:50] LABS: High Sensitivity CRP - Cardiac 0.5 mg/L (1.0-3.0)
== END ==
LOC: LAB 07:17
PROVIDERS: Family Provider Internal Medicine; PCP Internal Medicine; Referring Provider Nurse Practitioner; Visit Provider Nurse Practitioner
DX: Z51.81 Encounter for therapeutic drug level monitoring (principal); I25.10 Atherosclerotic heart disease of native coronary artery without angina pectoris; I25.84 Coronary atherosclerosis due to calcified coronary lesion
CPT/HCPCS: 36415; 80053; 80061; 83036; 83704; 86140

== ENCOUNTER → 2024-06-22 09:18 | Outpatient (CLI) | payer MEDICARE, SELFPAY ==
--- NOTE | 2024-06-22 | DI.MRI.S_ITS ---
PROCEDURE: MR KNEE RT WO CON INDICATIONS: Pain in right knee TECHNIQUE: Noncontrast sagittal PD fast spin echo and T2 fast spin echo with fat saturation, sagittal 3-D FLASH with fat saturation; coronal T1 spin echo and PD fast spin echo with fat saturation, and axial PD fast spin echo with fat saturation through the knee. COMPARISON: [facility], CR, XR KNEE 4+ VIEWS RIGHT, 06/15/2024, 10:35. FINDINGS: Image quality: Excellent. Anterior cruciate ligament: Intact. Posterior cruciate ligament: Intact. Medial collateral ligament: Mild thickening of the proximal medial collateral ligament without surrounding edema is consistent with remote prior low-grade sprain. Lateral collateral ligament: Mild thickening and intermediate signal in the proximal lateral collateral ligament is consistent with remote prior low-grade sprain. Medial meniscus: Horizontal oblique tearing of the medial meniscus at the meniscal body extending to the inner third of the tibial articular surface. Tear likely extends into the posterior horn with focal more prominent undersurface component is seen near the posterior root attachment. Lateral meniscus: Mild free edge fibrillation at the meniscal body versus shallow radial tearing. No meniscal extrusion. Medial and lateral tendons: The semimembranosus tendon insertions appear intact. Visualized portions of the pes anserinus tendons appear normal. The popliteus tendon is intact. Iliotibial band appears normal. Anterior structures: The quadriceps and patellar tendons appear intact. No patellar subluxation. No femoral trochlear dysplasia or ventral trochlear prominence. No edema in the infrapatellar fat pad. Bones and cartilage: No bone marrow contusions or fractures. Medial femorotibial cartilage: Moderate partial-thickness cartilage thinning and irregularity in the weight-bearing portion of the medial femorotibial compartment. Lateral femorotibial cartilage: High-grade cartilage loss at the posterior weight-bearing portion of the lateral tibial plateau. Patellofemoral cartilage: Full-thickness cartilage loss at the trochlear groove and medial femoral trochlea with subchondral cystic changes. Likely full-thickness cartilage loss at the medial patellar facet. Soft tissues: Small joint effusion. Small medial popliteal cyst. The visualized musculature is age-appropriate in bulk. IMPRESSION: 1. Horizontal oblique tearing of the medial meniscus involving the body and posterior horn and extending to the inner third of the tibial articular surface. 2. Mild free edge fibrillation versus shallow radial tearing at the body of the lateral meniscus. 3. Remote prior low-grade sprains of the medial and lateral collateral ligaments. Cruciate ligaments are intact. 4. Full-thickness cartilage loss in the patellofemoral compartment at the trochlear groove and medial femoral trochlea as well as the medial patellar facet. 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 Small area of grade 3 chondromalacia in the lateral femorotibial compartment. 5. Small joint effusion. Small medial popliteal cyst. Approved by: Hussein Shaw M.D. on 06/22/2024 at 11:09
== END ==
PROVIDERS: Family Provider Internal Medicine; PCP Internal Medicine; Referring Provider Orthopaedic Surgery; Visit Provider Orthopaedic Surgery
DX: S83.241A Other tear of medial meniscus, current injury, right knee, initial encounter (principal); S83.411A Sprain of medial collateral ligament of right knee, initial encounter; S83.421A Sprain of lateral collateral ligament of right knee, initial encounter; M94.261 Chondromalacia, right knee; M25.461 Effusion, right knee; M71.21 Synovial cyst of popliteal space [Baker], right knee; M25.561 Pain in right knee
CPT/HCPCS: 73721

== ENCOUNTER → 2024-12-20 06:52 | Outpatient (CLI) | payer MEDICARE, SELFPAY ==
[2024-12-20 07:47] LABS: Hemoglobin A1C% w Est Avg Glu 4.8 % (4.0-6.0)
[2024-12-20 07:55] LABS: Cholesterol 167 mg/dL (140-199); Glucose 106 mg/dL (70-99); HDL Cholesterol 99 mg/dL (40-60); LDL Cholesterol Calculated 54 mg/dL (<100); Triglycerides 69 mg/dL (35-150)
[2024-12-21 04:36] LABS: CRP, High Sensitivity 0.62 mg/L (0.00-3.00)
== END ==
LOC: LAB 06:55
PROVIDERS: Family Provider Internal Medicine; PCP Internal Medicine; Referring Provider Nurse Practitioner; Visit Provider Nurse Practitioner
DX: I25.10 Atherosclerotic heart disease of native coronary artery without angina pectoris (principal); I25.84 Coronary atherosclerosis due to calcified coronary lesion
CPT/HCPCS: 36415; 80061; 82947; 83036; 83704; 86140

== ENCOUNTER → 2025-01-20 15:43 | Outpatient (CLI) | payer MEDICARE, SELFPAY ==
[2025-01-20 17:20] LABS: Prostate Specific Antigen Scrn 0.863 ng/mL (0.1-4.0)
== END ==
PROVIDERS: Family Provider Internal Medicine; PCP Internal Medicine; Referring Provider Internal Medicine; Visit Provider Internal Medicine
DX: Z12.5 Encounter for screening for malignant neoplasm of prostate (principal)
CPT/HCPCS: 36415; G0103

== ENCOUNTER → 2025-06-27 06:51 | Outpatient (CLI) | payer MEDICARE, SELFPAY ==
[2025-04-11 18:20] VITALS: BMI 27.1
[2025-06-27 08:10] LABS: Hemoglobin A1C% w Est Avg Glu 4.8 % (4.0-6.0)
[2025-06-27 08:32] LABS: Alanine Aminotransferase 40 IU/L (<50); Cholesterol 129 mg/dL (140-199); Glucose 93 mg/dL (70-99); HDL Cholesterol 81 mg/dL (40-60); Triglycerides 174 mg/dL (35-150)
== END ==
PROVIDERS: Family Provider Internal Medicine; PCP Internal Medicine; Referring Provider Nurse Practitioner; Visit Provider Nurse Practitioner
DX: Z51.81 Encounter for therapeutic drug level monitoring (principal); E78.2 Mixed hyperlipidemia
CPT/HCPCS: 36415; 80061; 82947; 83036; 84460; 86140